=== PATIENT | male | born 1960 | race Caucasian/White ===

== ENCOUNTER → 2022-10-25 | Outpatient (CLI) | payer OTHER ==
--- NOTE | 2022-10-26 09:12 | XR ---
EXAMINATION TYPE: XR foot complete RT DATE OF EXAM: 10/25/2022 COMPARISON: NONE HISTORY: 62-year-old male S97.101A TECHNIQUE: 3 views FINDINGS: Mild degenerative change at the first MTP joint. Small os peroneum. Dressing over the great toe. Ther e is a subtle vertically oriented lucency projecting at the tuft and distal shaft of the first distal phalanx on the AP view. Tiny ossicle projecting at the medial first proximal phalangeal head. No sub luxation or dislocation. IMPRESSION: There is a subtle vertically oriented lucency projecting at the tuft and distal shaft of the first di stal phalanx on the AP view. A subtle nondisplaced fracture is suspected. Mild first MTP joint OA.
== END | disposition home or self-care (01) ==
LOC: RADXRMAIN 17:32
PROVIDERS: ATTEND Emergency Medicine
DX: S97.101A Crushing injury of unspecified right toe(s), initial encounter (principal); M19.071 Primary osteoarthritis, right ankle and foot; X58.XXXA Exposure to other specified factors, initial encounter

== ENCOUNTER 2022-11-20 10:26 | Emergency (ER) | payer OTHER ==
[2022-11-20 10:38] VITALS: TEMP 98
--- NOTE | 2022-11-20 11:27 | ED ---
General Adult HPI - General Chief complaint: Burn/Smoke Inhalation Stated complaint: electrocuted at work Time Seen by Provider: 11/20/22 11:00 Source: patient, RN notes reviewed Mode of arrival: ambulatory Limitations: no limitations - History of Present Illness Initial comments: 62-year-old male presents emergency Department chief complaint electrical shock. Patient states that he or tomorrow and states that he went to touch the ear hand volar and states that he felt a jolt. He states it was very quick he states he had some tingling in his left hand were happened but denies any other complaints including lightheadedness, chest, shortness breath or nausea vomiting no jordan noted. - Related Data Home Medications Medication Instructions Recorded Confirmed Atorvastatin Calcium [Lipitor] 20 mg PO DAILY 08/27/15 08/27/15 Fluticasone Propionate [Flonase 1 spray EA NOSTRIL DAILY 08/27/15 08/27/15 Allergy Relief] Montelukast [Singulair] 10 mg PO DAILY 08/27/15 08/27/15 Previous Rx's Medication Instructions Recorded Amoxicillin/Potassium Clav 1 each PO Q12HR #20 tab 08/27/15 [Augmentin 875-125 Tablet] Allergies Allergy/AdvReac Type Severity Reaction Status Date / Time No Known Allergies Allergy Verified 11/20/22 10:38 Review of Systems ROS Statement: Those systems with pertinent positive or pertinent negative responses have been documented in the HPI. ROS Other: All systems not noted in ROS Statement are negative. Past Medical History Past Medical History: Sleep Apnea/CPAP/BIPAP Additional Past Medical History / Comment(s): C-PAP MACHINE, ENVIRONMENTAL ALLERGIES, SINUS PROBLEMS. History of Any Multi-Drug Resistant Organisms: MRSA Date of last positivie culture/infection: 2004 MDRO Source:: NOSE Past Surgical History: Hernia Repair Additional Past Surgical History / Comment(s): UMBILICAL HERNIA REPAIR, DEVIATED SEPTUM SURG (15 YRS AGO),RT TORN MENISCUS SURG (AUGUST 2014) Past Anesthesia/Blood Transfusion Reactions: No Reported Reaction Additional Past Anesthesia/Blood Transfusion Reaction / Comment(s): STATES HE WOKE UP DURING HERNIA SURGERY Past Psychological History: No Psychological Hx Reported Smoking Status: Never smoker Past Alcohol Use History: Occasional Past Drug Use History: None Reported - Past Family History Brother(s) Family Medical History: Cancer Additional Family Medical History / Comment(s): BROTHER # 1 TESTICULAR CA. BROTHER # 2 PROSTATE CA General Exam Limitations: no limitations General appearance: alert, in no apparent distress Head exam: Present: atraumatic, normocephalic, normal inspection Eye exam: Present: normal appearance, PERRL, EOMI. Absent: scleral icterus, con junctival injection, periorbital swelling ENT exam: Present: normal exam, normal oropharynx, mucous membranes moist Neck exam: Present: normal inspection, full ROM. Absent: tenderness, meningismus, lymphadenopathy Respiratory exam: Present: normal lung sounds bilaterally. Absent: respiratory distress, wheezes, rales, rhonchi, stridor Cardiovascular Exam: Present: regular rate, normal rhythm, normal heart sounds. Absent: systolic murmur, diastolic murmur, rubs, gallop, clicks GI/Abdominal exam: Present: soft, normal bowel sounds. Absent: distended, tenderness, guarding, rebound, rigid Skin exam: Present: warm, dry, intact, normal color. Absent: rash Course Vital Signs 11/20/22 11/20/22 11/20/22 10:35 10:44 11:43 Temperature 98 F 98 F Pulse Rate 71 72 Respiratory 20 16 18 Rate Blood Pressure 158/91 139/72 O2 Sat by Pulse 99 99 Oximetry EKG Findings - EKG Comments: EKG Findings:: EKG performed at 1042 sinus rhythm with rate 62 IA 156 QRS 84 QT/QTC 317/377 - EKG Results: EKG: interpreted by [facility] Medical Decision Making - Medical Decision Making Was pt. sent in by a medical professional or institution (, PA, IMPREGNATOR HELPER, urgent care, hospital, or long-term...) When possible be specific @ -No Did you speak to anyone other than the patient for history (EMS, parent, family, police, friend...)? What history was obtained from this source @ -No Did you review nursing and triage notes (agree or disagree)? Why? @ -I reviewed and agree with nursing and triage notes Were old charts reviewed (outside hosp., previous admission, EMS record, old EKG, old radiological studies, urgent care reports/EKG's, long-term records)? Report findings @ -No old charts were reviewed Differential Diagnosis (chest pain, altered mental status, abdominal pain women, abdominal pain men, vaginal bleeding, weakness, fever, dyspnea, syncope, headache, dizziness, GI bleed, back pain, seizure, CVA, palpatations, mental health, musculoskeletal)? @ -Electrocution electric shock, electrical burn EKG interpreted by me (3pts min.). @ -As above X-rays interpreted by me (1pt min.). @ -None done CT interpreted by me (1pt min.). @ -None done U/S interpreted by me (1pt. min.). @ -None done What testing was considered but not performed or refused? (CT, X-rays, U/S, labs)? Why? @ -None What meds were considered but not given or refused? Why? @ -None Did you discuss the management of the patient with other professionals (professionals i.e. , PA, IMPREGNATOR HELPER, lab, RT, psych nurse, administrator social welfare, salvage diver, teacher, field crop technical officer, outsole caser)? Give summary @ -No Was smoking cessation discussed for >3mins.? @ -No Was critical care preformed (if so, how long)? @ -No Were there social determinants of health that impacted care today? How? (Homelessness, low income, unemployed, alcoholism, drug addiction, transportation, low edu. Level, literacy, decrease access to med. care, [facility], rehab)? @ -No Was there de-escalation of care discussed even if they declined (Discuss DNR or withdrawal of care, Hospice)? DNR status @ -No What co-morbidities impacted this encounter? (DM, HTN, Smoking, COPD, CAD, Cancer, CVA, ARF, Chemo, Hep., AIDS, mental health diagnosis, sleep apnea, morbid obesity)? @ -None Was patient admitted / discharged? Hospital course, mention meds given and route, prescriptions, significant lab abnormalities, going to OR and other pertinent info. @ -Discharge patient is asymptomatic EKG is unremarkable patient has no obvious ayers or entry or exit. Undiagnosed new problem with uncertain prognosis? @ -No Drug Therapy requiring intensive monitoring for toxicity (Heparin, Nitro, Insulin, Cardizem)? @ -No Were any procedures done? @ -No Diagnosis/symptom? @ -Electrical shock Acute, or Chronic, or Acute on Chronic? @ -Acute Uncomplicated (without systemic symptoms) or Complicated (systemic symptoms)? @ -Uncomplicated Side effects of treatment? @ -No Exacerbation, Progression, or Severe Exacerbation? @ -No Poses a threat to life or bodily function? How? (Chest pain, [place], [place], pneumonia, PE, COPD, DKA, ARF, appy, cholecystitis, CVA, Diverticulitis, Homicidal, Suicidal, threat to staff... and all critical care pts) @ -No Disposition Clinical Impression: Electric shock Disposition: HOME SELF-CARE Condition: Stable Instructions (If sedation given, give patient instructions): Electrical Ayers in Adults (ED) Additional Instructions: Please return to the Emergency Department if symptoms worsen or any other concerns. Is patient prescribed a controlled substance at d/c from ED?: No Referrals: Nonstaff,Physician [REFERRING] - 1-2 days Time of Disposition: 11:27
[2022-11-20 11:47] VITALS: BP 139/72; PULSE 72; RESP 18
== END 2022-11-20 11:47 | disposition home or self-care (01) ==
LOC: EC 10:26
DX: T75.4XXA Electrocution, initial encounter (principal); G47.30 Sleep apnea, unspecified; Z88.0 Allergy status to penicillin
CPT/HCPCS: 93005; 99283